=== PATIENT | female | born 1930 | race Caucasian/White ===

== ENCOUNTER → 2016-09-10 | Outpatient (CLI) | payer MEDICARE, OTHER | END | disposition home or self-care (01) | LOC: GMAL 16:46 | PROVIDERS: ATTEND Family Medicine | DX: C50.919 Malignant neoplasm of unspecified site of unspecified female breast (principal) ==

== ENCOUNTER → 2016-12-04 | Outpatient (CLI) | payer MEDICARE, OTHER | END | disposition home or self-care (01) | LOC: GMAL 11:30 | PROVIDERS: ATTEND Family Medicine | DX: R53.83 Other fatigue (principal) ==

== ENCOUNTER → 2017-01-24 | Outpatient (CLI) | payer MEDICARE, OTHER | END | disposition home or self-care (01) | LOC: GMAL 10:51 | PROVIDERS: ATTEND Family Medicine | DX: C50.919 Malignant neoplasm of unspecified site of unspecified female breast (principal) ==

== ENCOUNTER → 2017-05-07 | Outpatient (CLI) | payer MEDICARE, OTHER | END | disposition home or self-care (01) | LOC: MAMMO 13:16 | PROVIDERS: ATTEND Family Medicine | DX: Z12.31 Encounter for screening mammogram for malignant neoplasm of breast (principal) | CPT/HCPCS: 77063; G0202 ==

== ENCOUNTER → 2017-05-21 | Outpatient (CLI) | payer MEDICARE, OTHER ==
--- NOTE | 2017-05-21 16:19 | US ---
EXAM DESCRIPTION: Breast,Right: Ultrasound CLINICAL HISTORY: 87 yearsFemaleABNORMAL MAMMO COMPARISON: Digital 3-D tomosynthesis diagnostic right breast on this visit. TECHNIQUE: Transcutaneous scanning of the right breast utilizing two-dimensional and Doppler modes. Scanning performed by the personnel counselor and Dr. Amanda. FINDINGS: At the 1200 clock position of the right breast in the retroareolar tissues is a heterogeneous hypoechoic nodule with partially well-circumscribed and partially indistinct borders. Not significantly vascular. Parallel and nonparallel orientation. Dimensions are 10 x 8 x 7.4 mm. Mixed posterior acoustic features. IMPRESSION: BI-RADS CATEGORY 4: SUSPICIOUS. SUB-CATEGORY 4A - LOW SUSPICION FOR MALIGNANCY. Surgical consultation and tissue diagnosis should be considered. The FINDINGS and follow-up plan were reviewed in person with the patient following the examination. Written communication explaining the results and follow-up will be mailed to the patient and referring care provider. CRITICAL COMMUNICATION: The critical value was discussed directly by phone with Dr. Laith Morse at approximately 1545 hours, on May 21, 2017. Electronically signed by: Leonel Amanda MD 05/21/2017 4:18 PM [facility]
--- NOTE | 2017-05-21 16:19 | MAM ---
EXAM DESCRIPTION: 3D Diagnostic, Right: Digital Mammography CLINICAL HISTORY: 87 yearsFemaleABNORMAL MAMMO . Microcalcifications and dense fibroglandular tissues retroareolar right breast.. COMPARISON: 3-D screening bilateral study 05/07/2017. Targeted right breast ultrasound following this examination. Reports from prior examinations also reviewed. TECHNIQUE: Right breast LM projection full-field images, 3-D tomosynthesis digital mammographic technique. Also right breast synthesized LM full-field images. Digital 2-D anterior right breast magnification images CC and LM projections. CAD not utilized. FINDINGS: The breast parenchymal density pattern is: Heterogeneously dense breast tissue, which may obscure small masses. Minimal nipple retraction. No definite mass or focal asymmetry. Minimal architectural distortion. Heterogeneous and dystrophic calcifications. Multiple vascular calcifications. Ultrasound: At the 1200 clock position of the right breast in the retroareolar tissues is a heterogeneous hypoechoic nodule with partially well-circumscribed and partially indistinct borders. Not significantly vascular. Parallel and nonparallel orientation. Dimensions are 10 x 8 x 7.4 mm. Mixed posterior acoustic features IMPRESSION: BI-RADS CATEGORY 4: SUSPICIOUS. SUB-CATEGORY 4A - LOW SUSPICION FOR MALIGNANCY. Surgical consultation and tissue diagnosis should be considered. The FINDINGS and the follow-up plan were reviewed in person with the patient after the examination. Written communication explaining the IMPRESSION and follow-up will be mailed to the patient and referring care provider. CRITICAL COMMUNICATION: The critical value was discussed directly by phone with Dr. Laith Morse at approximately 1545 hours, on May 21, 2017. Electronically signed by: Leonel Amanda MD 05/21/2017 4:[address] [facility]
== END | disposition home or self-care (01) ==
LOC: MAMMO 16:06
PROVIDERS: ATTEND Family Medicine
DX: R92.8 Other abnormal and inconclusive findings on diagnostic imaging of breast (principal)
CPT/HCPCS: 76641; G0279

== ENCOUNTER → 2017-06-03 | Outpatient (CLI) | payer MEDICARE, OTHER ==
--- NOTE | 2017-06-03 10:22 | OP ---
DATE OF PROCEDURE: 06/03/17 PREOPERATIVE DIAGNOSIS: 1. Right breast mass per mammogram and ultrasound. POSTOPERATIVE DIAGNOSIS: 1. Right breast mass per mammogram and ultrasound. PROCEDURE: 1. Sonographically guided needle core biopsy, right breast mass. SURGEON: Chapin Emery MD. QM NURSE: None. ANESTHESIA: Local infiltration of 1% lidocaine. INDICATION: The patient is an 87-year-old female who on mammography was found to have a new mass in the 12 o'clock position of the right breast. It appears to be solid and somewhat circumscribed on ultrasound. She was brought to the Surgical Suite today for sonographically guided needle core biopsy after the risks, benefits and alternatives to the procedure were discussed and accepted. FINDINGS: The ultrasound device identified the biopsy needle within the mass on multiple occasions. Multiple cores were taken. Pathology is pending. PROCEDURE: After the patient was brought to the Ultrasound Suite and placed in the supine position with the head of the bed slightly elevated, the right breast was inspected using the ultrasound device and the lesion was identified. The breast medial to the ultrasound probe was prepped with Betadine and then draped. The probe was then again placed in position. Local infiltration of anesthesia was obtained with 1% lidocaine. A 25-gauge needle was introduced under ultrasound guidance and infiltration of anesthesia was obtained between the lesion and the skin. A stab wound was then made with a 15-blade. Then, as noted, multiple passes were made with the needle core biopsy device and sent for pathological evaluation. Hemostasis was obtained with pressure. A single suture of 4-0 Prolene was placed in the skin incision. Sterile pressure dressing was applied. The patient tolerated the procedure well. Estimated blood loss was approximately 5 to 10 mL. All sponge, needle and instrument counts were correct. #[id number] [facility]
--- NOTE | 2017-06-05 10:49 | US ---
EXAM DESCRIPTION: Biopsy/Needle Guidance CLINICAL HISTORY: 87 yearsFemaleRIGHT BREAST MASS COMPARISON: Diagnostic ultrasound of the right breast on 05/21/2017. TECHNIQUE: The procedure was performed by Dr. Emery. Repeat ultrasound localized the lesion at the 1200 clock position of the right breast. Sterile preparation. Sterile ultrasound guidance. FINDINGS: Multiple orthogonal images demonstrate the echogenic core biopsy needle within the lesion. Surrounding tissue is heterogeneous fatty and fibroglandular. IMPRESSION: Successful ultrasound-guided core biopsy needle right breast mass. Pathology examination at remote facility, results pending. Electronically signed by: Leonel Amanda MD 06/05/2017 10:48 AM [facility]
== END | disposition home or self-care (01) ==
LOC: US 09:37
PROVIDERS: ATTEND Surgery
PROC: 0HBT3ZX Excision of Right Breast, Percutaneous Approach, Diagnostic (ICD-10-PCS; principal; 2017-06-03)
DX: N63.41 Unspecified lump in right breast, subareolar (principal)

== ENCOUNTER → 2017-06-13 | Outpatient (CLI) | payer MEDICARE, OTHER ==
--- NOTE | 2017-06-13 14:48 | RAD ---
EXAM DESCRIPTION: Chest,2 Views CLINICAL HISTORY: BREAST CA COMPARISON: June 10, 2017 TECHNIQUE: PA/lateral FINDINGS: Cardiomediastinal silhouette and pulmonary vascularity are within normal limits. Lungs are adequately aerated. Lungs are clear without focal consolidative infiltrates. Bilateral costophrenic angles are sharp. No pneumothorax. Visualized osseous structures show no destructive lesions. IMPRESSION: 1. No radiographic evidence for acute cardiopulmonary process. Electronically signed by: Laith Lang MD 06/13/2017 2:46 PM [facility]
--- NOTE | 2017-06-13 14:59 | NM ---
EXAM DESCRIPTION: Bone Scan, Whole Body CLINICAL HISTORY: BREAST CA COMPARISON: None available TECHNIQUE: Following intravenous administration of 25 mCi technetium 99 M MDP, whole body spot scintigraphic imaging was performed. FINDINGS: Skull: Unremarkable. Spine: Mild degenerative uptake in the lumbar spine. No osteoblastic metastatic lesions. Thorax: Homogeneous physiologic radiotracer distribution in the ribs bilaterally. There is a round focus of mildly increased radiotracer uptake in the costochondral junction of a lower right rib. This nonspecific and has a benign appearance. The sternum demonstrates homogeneous physiologic uptake. Abdomen and pelvis: Physiologic urinary activity seen in the bilateral kidneys, left ureter, and urinary bladder. Extremities: Degenerative uptake in the bilateral shoulder joints. 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 There is mild increased uptake in the distal left femur and proximal left tibia around the left knee arthroplasty, likely reactive or gait changes. No osteoblastic metastatic lesions. Soft tissue: Normal distribution of radiopharmaceutical. IMPRESSION: 1. No scintigraphic evidence for osteoblastic metastatic disease. 2. A rounded focus of increased uptake in a lower right costochondral junction is nonspecific. Please correlate for history of trauma. Electronically signed by: Laith Lang MD 06/13/2017 2:58 PM [facility]
== END | disposition home or self-care (01) ==
LOC: NM 09:19
PROVIDERS: ATTEND Surgery
DX: C50.811 Malignant neoplasm of overlapping sites of right female breast (principal)

== ENCOUNTER → 2017-07-23 | Outpatient (CLI) | payer MEDICARE, OTHER | LOC: GMAL 11:29 | PROVIDERS: ATTEND Family Medicine | DX: D51.3 Other dietary vitamin B12 deficiency anemia (principal); E55.9 Vitamin D deficiency, unspecified; I10 Essential (primary) hypertension ==

== ENCOUNTER 2017-07-25 04:54 | Day surgery (SDC) | payer MEDICARE, OTHER ==
--- NOTE | 2017-07-22 12:51 | RAD ---
EXAM DESCRIPTION: Chest,2 Views CLINICAL HISTORY: 87 years Female, PREOP COMPARISON: 13 June 2017 TECHNIQUE: PA/lateral FINDINGS: The lungs are free of acute infiltrate or evidence of effusion. The heart is within range of normal. IMPRESSION: Unremarkable chest Electronically signed by: Laith Connor MD 07/22/2017 12:50 PM [employer]
[2017-07-25] MEDS ORDERED: LACTATED RINGERS 1,000 ML ONE (06:46)
[2017-07-25] MEDS ORDERED: PROPOFOL 200 MG/20 ML VIAL IV ONE (07:00)
[2017-07-25] MEDS ORDERED: SODIUM BICARBONATE VIAL 50 MEQ/50 ML VIAL ONE (09:16)
[2017-07-25] MEDS ORDERED: LIDOCAINE 1% 50 ML VIAL INJ ONE (09:16)
[2017-07-25] MEDS ORDERED: levoFLOXacin 500MG IV 100 ML IVPB ONE (09:23)
[2017-07-25] MEDS ORDERED: fentaNYL CITRATE INJ 50 MCG/ML AMP ONE (09:30)
[2017-07-25] MEDS ORDERED: levoFLOXacin 500MG IV 500 MG/100 ML BAG IVPB ONE (09:43)
[2017-07-25] MEDS ORDERED: ONDANSETRON INJ 4 MG/2 ML VIAL ONE (11:53)
[2017-07-25] MEDS ORDERED: METOCLOPRAMIDE HCL INJ 10 MG/2 ML VIAL ONE (11:53)
--- NOTE | 2017-07-25 11:58 | OP ---
DATE OF PROCEDURE: 07/25/17 PREOPERATIVE DIAGNOSIS: 1. Biopsy-proven carcinoma of the right breast. POSTOPERATIVE DIAGNOSIS: 1. Biopsy-proven carcinoma of the right breast. PROCEDURE: 1. Partial mastectomy to include the carcinoma after needle localization. SURGEON: Chapin Emery MD. MEMS ENGINEER: None. ANESTHESIA: General laryngeal mask and local infiltration of 1% lidocaine. INDICATION: The patient is an 87-year-old female who has previously been treated for a left breast carcinoma with lumpectomy and radiation. She declined hormone manipulation therapy and has developed an abnormal mammogram which needle core biopsy revealed as an infiltrating carcinoma. She was brought to the Surgical Suite today for wide excision with primary closure. The patient was brought to the Operating Room after the risks, benefits and alternatives to radiation therapy postoperatively, mastectomy and lymphadenectomy or sentinel node biopsy were all discussed. FINDINGS: The lesion was identified first with a guidewire and then palpation and the margins were marked, superior margin, inferior margin, lateral margin and deep margin. Pathology is pending. PROCEDURE: After adequate general anesthesia was obtained, the patient was prepped and draped in the usual sterile manner. A surgical time-out was taken. When this was done, surgical incision was marked with an elliptical incision medial to the areola to include both the guidewire insertion site and the previous biopsy site. The incision was then extended to the superior margin of the areola in the periareolar direction. Local infiltration of anesthesia was obtained and then the skin was incised with a knife. Dissection was carried down through the skin using electrocautery. Hemostasis was obtained with electrocautery. When this was done, the guidewire was dissected free to the medial aspect. The dissection was carried passed the end of the guidewire which was known to be superior to the lesion. It was then taken both superiorly and inferior around the lesion. The lesion was palpated and then the inferior margin and the medial margin were taken by palpation. The specimen was removed and marked with sutures as noted. The wound was irrigated with saline. Hemostasis was obtained with electrocautery. When hemostasis was noted to be adequate and the specimen had been sent for radiologic evaluation, the wound was closed in layers with deep layers approximated along with the chest wall in three bite sutures and then in two more layers of 3-0 and then 4- 0 Vicryl. The skin edges were approximated with 4-0 Vicryl subcuticular sutures , benzoin and Steri-Strips. Sterile pressure dressing was applied. The patient tolerated well. Estimated blood loss was less than 50 mL. All sponge, needle and instrument counts were correct. [facility][id number] [facility]
[2017-07-25] MEDS ORDERED: KETOROLAC TROMETHAMINE INJ 30 MG/ML VIAL ONE (12:23)
[2017-07-25] MEDS ORDERED: traMADol HCL 50 MG TAB ONE (13:13)
[2017-07-25 14:13] VITALS: BP 178/82; TEMP 98.1; O2SAT 96
--- NOTE | 2017-07-26 13:43 | US ---
EXAM DESCRIPTION: Biopsy/Needle Guidance: Ultrasound. CLINICAL HISTORY: 87 yearsFemaleMASS. Malignant cells on recent ultrasound-guided core biopsy. COMPARISON: Diagnostic ultrasound of the right breast on 05/21/2017. Ultrasound-guided core biopsy right breast 06/03/2017 TECHNIQUE: The procedure was explained to the patient with risks and benefits. The patient gave verbal and written consent. Repeat ultrasound localized the lesion at the 12:00 position of the right breast. Sterile preparation. Sterile ultrasound guidance. 1% lidocaine with sodium bicarbonate for skin and subdermal anesthesia at the 300 clock position 2 cm from the nipple. This is adjacent to the biopsy skin insertion site. Insertion of 5 cm Kopan needle wire system to the edge of the lesion. While wire was held in place, outer needle was removed. Additional scans of the wire and mass were performed. Patient tolerated the procedure well with no immediate complications. FINDINGS: Preliminary scans prior to the procedure show the hypoechoic mass approximately 6 x 6 mm at the 1200 clock position of the right breast. The mass has a slight difference in architecture since the prior core biopsy. Multiple images show the needle wire system abutting the mass. After needle was removed, the wire is noted just anterior to the mass with the hook just lateral to the mass. IMPRESSION: Successful, ultrasound-guided, localization of right breast mass with needle wire localization system. Please refer to report on post lumpectomy right breast ultrasound specimen examination. Pathology examination at remote facility, results pending. Electronically signed by: Leonel Amanda MD 07/26/2017 1:42 PM [facility] [employer]
--- NOTE | 2017-07-26 14:06 | MAM ---
EXAM DESCRIPTION: Breast Surgical Specimen: Ultrasound CLINICAL HISTORY: 87 yearsFemaleLUMPECTOMY COMPARISON: Ultrasound guided, needle wire localization of right breast mass today. TECHNIQUE: Ultrasound of right breast biopsy specimen. Specimen is placed between 2 sheets of x-ray film with ultrasound gel overlying the top sheet and overlying the specimen. FINDINGS: The right breast lumpectomy specimen contains the mass seen on today's procedure images and also seen on images from previous examinations. The distal wire and hook are seen anterior to the specimen. IMPRESSION: Successful, ultrasound guided, needle wire localization of mass in the anterior right breast, with mass, and distal wire and hook present in the lumpectomy specimen. The specimen is pending pathologic examination at remote laboratory Electronically signed by: Leonel Amanda MD 07/26/2017 2:05 PM [facility]
== END 2017-07-25 14:00 | disposition home or self-care (01) ==
LOC: AMB 04:54
PROVIDERS: ATTEND Surgery
DX: C50.911 Malignant neoplasm of unspecified site of right female breast (principal); K21.9 Gastro-esophageal reflux disease without esophagitis; Z86.718 Personal history of other venous thrombosis and embolism; E53.8 Deficiency of other specified B group vitamins; Z86.73 Personal history of transient ischemic attack (TIA), and cerebral infarction without residual deficits; M19.90 Unspecified osteoarthritis, unspecified site; K22.70 Barrett's esophagus without dysplasia; R00.1 Bradycardia, unspecified; Z88.0 Allergy status to penicillin; Z88.8 Allergy status to other drugs, medicaments and biological substances; Z79.899 Other long term (current) drug therapy
CPT/HCPCS: 00400; 19301; 36415; 71046; 76098; 80048; 81001; 85025; 88307; 93005; J1885; J1956; J2405; J2765; J3010; J3490; J7120

== ENCOUNTER → 2017-08-19 | Outpatient (CLI) | payer MEDICARE, OTHER | LOC: GMAL 11:14 | PROVIDERS: ATTEND Family Medicine | DX: C50.919 Malignant neoplasm of unspecified site of unspecified female breast (principal) ==

== ENCOUNTER → 2018-01-06 | Outpatient (CLI) | payer MEDICARE, OTHER ==
--- NOTE | 2018-01-06 16:31 | MRI ---
EXAM DESCRIPTION: Cervical Spine: MRI. CLINICAL HISTORY: CERVICALGIA COMPARISON: None. TECHNIQUE: Multiplanar MRI, multiple sequences, non-contrast High-field. FINDINGS: C2-3: Tiny posterior disc bulge with minimal disc desiccation. Minimal disc space loss. Minimal arthrosis right facet. Canal and neural foramina are patent. C3-4: Disc desiccation. Tiny posterior bulge. Trace anterolisthesis. Small uncinate spurs bilaterally. Posterior ligament hypertrophy. Bilateral facet arthrosis. Mild to moderate neural foraminal narrowing. Canal is patent. C4-5: Minimal disc desiccation and disc space loss. Trace anterolisthesis. Posterior disc osteophyte bulge abutting the cord. Mild canal narrowing. Bilateral foramina are patent. Bilateral facet arthrosis. C5-6: Disc desiccation and minimal disc space loss. Anterior bulging. Posterior disc osteophyte bulge abutting the cord with mild canal narrowing. Minimal posterior ligament hypertrophy. Left uncinate spur with mild neural foraminal narrowing. Right neuroforamen is patent. Bilateral facet arthrosis. C6-7: Disc desiccation and moderate disc space loss. Minimal anterior and posterior bulge. Left uncinate spur with minimal neural foraminal narrowing. Right neuroforamen is patent. Mild canal narrowing. Bilateral facets are unremarkable. C7-T1: Disc desiccation and disc space maintained. No bulging. Minimal flavum ligament hypertrophy. Canal and foramina are patent. Facets are negative. Normal signal in the T1-2 disc with no bulging. Disc space preserved. Canal and neural foramina are patent. Facets negative. Spinal alignment mid cervical kyphosis with no scoliosis.. No cord compression or cord edema. Atlantoaxial joint is negative. Base of the cerebellar tonsils is above the foramen magnum. Paravertebral soft tissues show thyroid gland with multiple nodules, heterogeneous, and enlarged. Vertebral bodies are not compressed at any level. Normal marrow signal in the remaining vertebral bodies and the posterior elements. IMPRESSION: 1. Multiple levels of cervical disc and endplate spondylosis most prominent at C4-5, C5-6, and C6-7. No canal or neural foraminal stenosis. No cord compression or herniated discs. 2. Multiple levels of unilateral or bilateral facet arthrosis. No cord compression or cord edema. 3. Heterogeneously enlarged thyroid gland with multiple bilateral nodules. In reference to [employer] Best Practice recommendations for imaging follow-up of idiopathic thyroid nodules, following 2017 ACR guidelines. Recommend follow-up thyroid ultrasound. Please see below.* * 1.Further evaluation by thyroid US recommended for: -Solitary ITN with high risk imaging features (locally invasive nodule or suspicious lymph nodes) -Solitary ITN of any size in pediatric pts. <= 18 years of age -Solitary ITN >= 1 cm in axial plane in pts. between 18 and 35 years of age -Solitary ITN >= 1.5 cm in axial plane in pts >= 35 years of age -Heterogeneous enlarged thyroid gland 2.No f/u imaging is recommended for ITNs not meeting the above criteria. 3.For multiple thyroid nodules, the above recommendations for solitary ITN are to be applied to the largest nodule. 4.No US or f/u recommended for ITNs without high risk features in pts. with limited life expectancy or significant co-morbidities, unless clinically warranted. Recommendations for f/u of Incidental Thyroid Nodules (ITN) found on CT, MR, NM and Extrathyroidal US are based upon the ACR white paper and Mendoza 3-tiered system for managing ITNs: J Am Cecilia [employer]. 2015 Aug;12(2): 143-50 Electronically signed by: Leonel Amanda MD 01/06/2018 4:30 PM CDT
== END ==
LOC: MRI 09:49
PROVIDERS: ATTEND Family Medicine
DX: M54.2 Cervicalgia (principal); E04.9 Nontoxic goiter, unspecified

== ENCOUNTER → 2018-01-17 | Outpatient (CLI) | payer MEDICARE, OTHER ==
--- NOTE | 2018-01-17 16:39 | US ---
THYROID ULTRASOUND CLINICAL INFORMATION: Thyrotoxicosis with toxic multinodular goiter. TECHNIQUE: Routine transcutaneous scannin-D and Doppler modes. COMPARISON: None. FINDINGS: Thyroid size: Right 3.8 x 2.2 x 1.8. Left 4.8 x 2.3 x 2.3. Isthmus 4.5 mm thickness. Texture: Heterogeneous Estimated total number of nodules >/=1 cm: 3 Number of spongiform nodules >/=2 cm not described below (TR1): 0 Number of mixed cystic and solid nodules >/=1.5 cm not described below (TR2): 0 Nodule #: 1 Maximum size: 1.6 cm; All dimensions 1.5 x 1.2 cm Location: right; lower Composition: solid/almost completely solid (2) Echogenicity: hypoechoic (2) Shape: not [id number] (0) Margins: ill-defined (0) Echogenic foci: none (0) ACR TI-RADS total points: 4. ACR TI-RADS risk category: TR4 (4-6 points) ACR TI-RADS recommendation: Ultrasound-guided fine needle aspiration Nodule #: 2 Maximum size: 1.9 cm; All dimensions 1.5 x 0.9 cm Location: left; mid Composition: solid/almost completely solid (2) Echogenicity: hyperechoic (1) Shape: not weubxz-[id number] (0) Margins: smooth (0) Echogenic foci: none (0) ACR TI-RADS total points: 3. ACR TI-RADS risk category: TR3 (3 points) ACR TI-RADS recommendation: Follow-up ultrasound in 1 year Nodule #: 3 Maximum size: 1 cm; All dimensions 0.7 x 0.7 cm Location: left; mid Composition: solid/almost completely solid (2) Echogenicity: hyperechoic (1) Shape: not aewplv-voti-fjxy (0) Margins: smooth (0) Echogenic foci: none (0) ACR TI-RADS total points: 3. ACR TI-RADS risk category: TR3 (3 points) ACR TI-RADS recommendation: No further follow-up Nodule #: 4 Maximum size: 0.6 cm; All dimensions 0.5 x 0.3 cm Location: isthmus; mid Composition: solid/almost completely solid (2) Echogenicity: hypoechoic (2) Shape: not cosdrk-alco-tcxa (0) Margins: smooth (0) Echogenic foci: none (0) ACR TI-RADS total points: 4. ACR TI-RADS risk category: TR4 (4-6 points) ACR TI-RADS recommendation: No further follow-up In the soft tissue surrounding the thyroid gland, no distinct solid mass or cyst. No large calcifications or parenchymal edema. No overlying skin changes. No abnormal vascularity. IMPRESSION: 1. 1.6 cm hypoechoic solid nodule (# 1) with somewhat irregular borders in the lower aspect of the right lobe. ACR TI RADS risk category TR 4. Ultrasound-guided fine-needle aspiration and sampling is recommended. Please see ACR TI RADS recommendations below.* 2. 1.9 cm solid hypoechoic nodule (# 2) in the mid left lobe. ACR TI-RADS risk category TR 3. Ultrasound follow-up in one year is recommended. If there are no changes to the nodule, additional follow-up recommended in year 3, and year 5. 3. Solid nodules in the left lobe and isthmus (# 3 and # 4), do not require further ultrasound follow-up 4. Soft tissue surrounding the thyroid gland are unremarkable. *ACR TI-RADS recommendations: TR5 (>/=7 points) - FNA if >/=1 cm, follow-up if 0.5 - 0.9 cm every year for 5 years TR4 (4-6 points) - FNA if >/=1.5 cm, follow-up if 1 - 1.4 cm in 1, 2, 3 and 5 years TR3 (3 points) - FNA if >/=2.5 cm, follow -up if 1.5 - 2.4 cm in 1, 3 and 5 years TR2 (2 points) and TR1 (0 points) - No FNA or follow-up * ACR TI-RADS recommends that no more than two nodules with the highest ACR TI-RADS total point should be biopsied and no more than four nodules should be followed. Electronically signed by: Leonel Amanda MD 01/17/2018 4:38 PM CDT
== END ==
LOC: US 10:29
PROVIDERS: ATTEND Family Medicine
DX: E05.20 Thyrotoxicosis with toxic multinodular goiter without thyrotoxic crisis or storm (principal)

== ENCOUNTER → 2018-01-22 | Outpatient (CLI) | payer MEDICARE, OTHER ==
--- NOTE | 2018-01-23 12:28 | MAM ---
EXAM DESCRIPTION: 3D Diagnostic, Right: Digital Mammography CLINICAL HISTORY: 88 yearsFemaleSCREENING . Bilateral breast cancer with lumpectomies. Benign right breast biopsy July 2017. Malignant right breast biopsy May 2017. Postmenopausal. Has taken HRT in the past. Malignant left breast biopsy 2013. Previous radiation therapy left breast. COMPARISON: Diagnostic right breast digital mammography 05/21/2017. Ultrasound-guided needle biopsy right breast 07/25/2017. Ultrasound-guided needle biopsy right breast 06/03/2017. 3-D screening bilateral mammography 05/07/2017. Reports from prior examinations also reviewed. TECHNIQUE: Right CC LM MLO projection full-field images, 3-D tomosynthesis digital mammographic technique. CAD not utilized. FINDINGS: Right breast parenchymal density pattern is: Heterogeneously dense breast tissue, which may obscure small masses. No skin thickening or nipple retraction the breast parenchyma is more radiolucent in the biopsy area compared to the prebiopsy diagnostic mammographic images. Some parenchymal and vascular calcifications are also no longer present in the region of biopsy. No new focal, stellate mass or density, focal asymmetry , and no suspicious microcalcifications right breast postbiopsy region of interest. IMPRESSION: BI-RADS CATEGORY: 2 - BENIGN FINDINGS. FOLLOW UP: Routine digital bilateral screening, April 2018. Written communication explaining the IMPRESSION and follow-up, will be mailed to the patient and referring health care provider. According to the [employer], yearly mammograms are recommended starting at age 40 and continuing as long as a woman is in good health. Any breast change noted on a breast self-exam should be reported promptly to the patient's healthcare provider. Breast MRI is recommended for women with an approximately 20-25% or greater lifetime risk of breast cancer, including women with a strong family history of breast or ovarian cancer and women who have been treated for Hodgkin's disease. A negative mammographic report should not delay tissue diagnosis in patients with significant clinical history or physical findings. Extremely dense breast tissue limits the sensitivity of digital mammography. Electronically signed by: Leonel Amanda MD 01/23/2018 12:27 PM CDT
== END ==
LOC: MAMMO 13:12
PROVIDERS: ATTEND Surgery
DX: C50.811 Malignant neoplasm of overlapping sites of right female breast (principal)
CPT/HCPCS: 77065; G0279

== ENCOUNTER → 2018-02-04 | Outpatient (CLI) | payer MEDICARE, OTHER ==
--- NOTE | 2018-02-04 12:47 | US ---
Thyroid Ultrasound Biopsy CLINICAL INFORMATION: 1.6 cm nodule seen in the right lower thyroid on prior study 01/17/2018. TECHNIQUE: Procedure was explained to the patient with risks and benefits. The patient gave verbal and written consent. Sterile preparation draping. 1% xylocaine dermal anesthetic 9-1 mixture with sodium bicarbonate. Sterile ultrasound guidance. A total of 6 passes into the right lower thyroid nodule; 3 needle samplings with a separate 1.5 inch, 25-gauge needle per sample, and 3 aspirations, with a separate 1.5 inch, 25-gauge needle/10-cc syringe set, per aspiration. Each sample was placed on a separate slide and fixed in 95% alcohol container. Saccomanno fluid drawn into aspirate needle and rinse injected into Saccomanno container. Specimens to be sent for pathologic examination at remote facility. . Patient tolerated procedure well. Biopsy #: 1 Nodule reference number based on prior diagnostic ultrasound:1 Maximum size: 1.6 cm Location: right; lower ACR TI-RADS risk category: TR4 (4-6 points) Reason for biopsy: meets ACR TI-RADS criteria Complications: None IMPRESSION: Successful ultrasound guided fine needle aspiration and sampling of thyroid nodule, right lower gland. ACR TI-RADS risk category TR 4. Pathology results are pending at remote laboratory. As previously stated, nodule in the left mid thyroid should be followed by ultrasound in 1 year. Electronically signed by: Leonel Amanda MD 02/04/2018 12:46 PM CDT
== END ==
LOC: US 08:47
PROVIDERS: ATTEND Family Medicine
DX: E05.20 Thyrotoxicosis with toxic multinodular goiter without thyrotoxic crisis or storm (principal)

== ENCOUNTER → 2018-02-06 | Outpatient (CLI) | payer MEDICARE, OTHER | LOC: GMAL 11:03 | PROVIDERS: ATTEND Family Medicine | DX: R53.83 Other fatigue (principal) ==

== ENCOUNTER → 2018-03-13 | Outpatient (CLI) | payer MEDICARE, OTHER | LOC: GMAL 16:45 | PROVIDERS: ATTEND Family Medicine | DX: E05.20 Thyrotoxicosis with toxic multinodular goiter without thyrotoxic crisis or storm (principal) ==

== ENCOUNTER → 2018-04-02 | Outpatient (CLI) | payer MEDICARE, OTHER ==
--- NOTE | 2018-04-02 15:12 | MRI ---
EXAM DESCRIPTION: Lumbar Spine w/o Contrast : Magnetic Resonance Imaging. CLINICAL HISTORY: LOW BACK PAIN COMPARISON: MRI lumbar spine without contrast 01/16/2011. TECHNIQUE: Multiplanar, multiple standard sequences, non contrast MRI, lumbar spine. FINDINGS: L5-S1: Disc desiccation with minimal disc space loss. No significant bulging. Minimal facet arthrosis and flavum ligament hypertrophy. Moderate right foraminal narrowing and mild left foraminal narrowing. L4-5: Disc desiccation with disc space preserved. Tiny posterior bulge with bright T2-weighted signal in the posterior margin. Mild right facet arthrosis. Disc bulges to the right with mild right foraminal narrowing. Mild left foraminal narrowing and mild canal narrowing. L3-4: Disc desiccation and minimal disc space loss. Posterior bulge is broad-based abutting the thecal sac. Bilateral facet arthrosis and effusion and flavum ligament hypertrophy. Mild canal stenosis. Mild bilateral foraminal narrowing. Minimal narrowing of the bilateral subarticular recesses. L2-3: Disc desiccation with disc space preserved. Minimal flavum ligament hypertrophy. Mild bilateral foraminal narrowing. Canal is patent. L1-2: Disc desiccation with Schmorl's node inferior L1 endplate. Disc space preserved. Posterior flavum ligament hypertrophy. Minimal right facet arthrosis. Mild canal narrowing. Bilateral mild foraminal narrowing. T12-L1: Disc space preserved with endplate concavities. Disc desiccation. No disc bulge. Posterior elements unremarkable. Canal and foramina are patent. No significant scoliosis Paravertebral soft tissues show paraspinal muscle atrophy.. Normal marrow signal in the remaining vertebral bodies and the posterior elements. Vertebral bodies are not compressed at any level. IMPRESSION: 1. Bulging L3-4 disc and hypertrophy of the flavum ligaments and facet arthrosis causing mild canal stenosis. Mild bilateral foraminal narrowing. Bilateral subarticular recess narrowing. 2. Posterior midline L4-5 disc bulge with annular fissure. 3. L5-S1 disc desiccation with right side disc bulge and moderate right foraminal narrowing. Electronically signed by: Leonel Amanda MD 04/02/2018 3:10 PM CDT
== END ==
LOC: MRI 14:00
PROVIDERS: ATTEND Family Medicine
DX: M51.26 Other intervertebral disc displacement, lumbar region (principal)

== ENCOUNTER → 2018-05-20 | Outpatient (CLI) | payer MEDICARE, OTHER ==
--- NOTE | 2018-05-22 10:39 | MAM ---
EXAM DESCRIPTION: 3D Screening BILATERAL : Digital Mammography. CLINICAL HISTORY: 88 years Female SCREENING . Cancer right breast diagnosed May 2017 ultrasound-guided biopsy. Follow-up open biopsy July 2017. Previous left breast cancer. Half - sister with breast cancer. Childbirth. Postmenopausal. Has taken HRT. Bilateral breast biopsies. Radiation therapy left breast.. Lifetime risk of developing breast cancer (Tyrer-Cuzick model)(%): Not calculated due to personal history of breast cancer. COMPARISON: Diagnostic right breast tomosynthesis, targeted right breast ultrasound and mammographic guided needle wire localization July 2017. Diagnostic right breast tomosynthesis, ultrasound targeted right breast and ultrasound-guided right breast core biopsy May 2017.. Bilateral screening digital breast tomosynthesis April 2017. TECHNIQUE: Bilateral CC and MLO projection full-field images, digital tomosynthesis mammographic technique. Bilateral digital 2-D full-field MLO images. CAD not available for tomosynthesis or 2-D images. FINDINGS: The breast parenchymal density pattern is: Heterogeneously dense breast tissue, which may obscure small masses. Minimal bilateral skin thickening abutting the nipple. No Nipple retraction. The lumpectomy site noted retroareolar right breast. Bilateral vascular calcifications and bilateral solitary coarse calcifications and microcalcifications.. Superior posterior left breast biopsy site 1:00 position with central calcifications and architectural distortion. No new focal, stellate mass or density, focal asymmetry , and no suspicious microcalcifications bilaterally. IMPRESSION: Benign exam. BIRAD CATEGORY: 2 BENIGN FINDINGS. RECOMMENDATIONS: FOLLOW UP: Routine digital bilateral mammographic screening, one year interval from May 2018. Written communication explaining the IMPRESSION and follow-up, will be mailed to the patient and referring health care provider. According to the [employer], yearly mammograms are recommended starting at age 40 and continuing as long as a woman is in good health. Any breast change noted on a breast self-exam should be reported promptly to the patient's healthcare provider. Breast MRI is recommended for women with an approximately 20-25% or greater lifetime risk of breast cancer, including women with a strong family history of breast or ovarian cancer and women who have been treated for Hodgkin's disease. A negative mammographic report should not delay tissue diagnosis in patients with significant clinical history or physical findings. Extremely dense breast tissue limits the sensitivity of digital mammography. Electronically signed by: Leonel Amanda MD 05/22/2018 10:38 AM RESTAURANT MAINTENANCE TECHNICIAN
== END ==
LOC: MAMMO 10:30
PROVIDERS: ATTEND Family Medicine
DX: Z12.31 Encounter for screening mammogram for malignant neoplasm of breast (principal)

== ENCOUNTER → 2018-10-30 | Outpatient (CLI) | payer MEDICARE, OTHER ==
--- NOTE | 2018-10-31 07:43 | RAD ---
EXAM DESCRIPTION: Pelvis CLINICAL HISTORY: M25.551 pelvic pain COMPARISON: September 01, 2015 IMPRESSION: Single AP supine view of the pelvis shows noncemented left total hip arthroplasty in place. No complicating features are seen. Severe narrowing of the right hip joint space is seen with sclerotic changes to the superior lateral acetabulum and mild circumferential osteophyte of the femoral head most consistent with severe osteoarthritic changes of the right hip similar to previous exam. Electronically signed by: Butch Monroy MD 10/31/2018 7:40 AM CDT
--- NOTE | 2018-10-31 07:45 | RAD ---
EXAM DESCRIPTION: Hip,Right 2 Views CLINICAL HISTORY: M25.551 hip pain COMPARISON: September 01, 2015 FINDINGS: 2 views of the right hip show no acute fracture, focal bone destruction, or joint dislocation. Severe joint space narrowing is again seen with mild circumferential osteophyte of the femoral head and moderate sclerotic changes to the superior lateral acetabulum. Left hip arthroplasty changes are partly visualized. IMPRESSION: Severe osteoarthritic changes of the right hip are again seen without significant interval change. Electronically signed by: Butch Monroy MD 10/31/2018 7:42 AM CDT
== END ==
LOC: RAD 10:30
PROVIDERS: ATTEND Orthopaedic Surgery
DX: M16.11 Unilateral primary osteoarthritis, right hip (principal); Z96.641 Presence of right artificial hip joint

== ENCOUNTER → 2019-01-21 | Outpatient (CLI) | payer MEDICARE, OTHER ==
--- NOTE | 2019-01-22 19:58 | MAM ---
EXAM DESCRIPTION: Diagnostic Mammo,Right: Digital Mammography CLINICAL HISTORY: 89 yearsFemaleFU BREAST RIGHT personal history of bilateral breast cancer with lumpectomy. Sister With breast cancer. Taking HRT 5 or more years ago. Postmenopausal 45+ years Lifetime risk of developing breast cancer (Tyrer-Cuzick model) percentage is not calculated due to personal history of breast cancer. COMPARISON: Bilateral screening digital breast tomosynthesis 05/20/2018... TECHNIQUE: Right LM, MLO, and CC projection full-field images, digital mammographic tomosynthesis technique. CAD not available. FINDINGS: The breast parenchymal density pattern is: Heterogeneously dense breast tissue, which may obscure small masses. No skin thickening or nipple retraction right breast. Scarring in the upper outer quadrant of the middle third of the right breast previous lumpectomy site. No significant change, taking into account technical tissue changes post biopsy. Solitary microcalcifications and vascular microcalcifications. No new focal, stellate mass or density, focal asymmetry , and no suspicious microcalcifications right breast. Stable mammograms compared to prior study, IMPRESSION: Benign exam. BIRAD CATEGORY: 2 BENIGN FINDINGS. RECOMMENDATIONS: FOLLOW UP: Return to routine digital bilateral mammographic screening, May 2019. Written communication explaining the IMPRESSION and follow-up, will be mailed to the patient and referring health care provider. The FINDINGS and the FOLLOW-UP plan were reviewed, by the wholesale buyer, with the patient after the examination. According to the [employer], yearly mammograms are recommended starting at age 40 and continuing as long as a woman is in good health. Any breast change noted on a breast self-exam should be reported promptly to the patient's healthcare provider. Breast MRI is recommended for women with an approximately 20-25% or greater lifetime risk of breast cancer, including women with a strong family history of breast or ovarian cancer and women who have been treated for Hodgkin's disease. A negative mammographic report should not delay tissue diagnosis in patients with significant clinical history or physical findings. Extremely dense breast tissue limits the sensitivity of digital mammography. Electronically signed by: Leonel Amanda MD 01/22/2019 7:56 PM CDT
== END ==
LOC: MAMMO 09:00
PROVIDERS: ATTEND Surgery
DX: C50.811 Malignant neoplasm of overlapping sites of right female breast (principal)
CPT/HCPCS: 77065; G0279

== ENCOUNTER → 2019-02-11 | Outpatient (CLI) | payer MEDICARE, OTHER | LOC: GMAL 11:26 | PROVIDERS: ATTEND Family Medicine | DX: C50.919 Malignant neoplasm of unspecified site of unspecified female breast (principal) ==

== ENCOUNTER 2019-04-12 19:55 | Emergency (ER) | payer MEDICARE, OTHER ==
[2019-04-12] MEDS ORDERED: methylPREDNISolone SODIUM SUC 125 MG/2 ML VIAL IV ONE (20:22)
[2019-04-12] MEDS ORDERED: diphenhydrAMINE HCL 50 MG/ML VIAL IV ONE (20:23)
[2019-04-12] MEDS ORDERED: FAMOTIDINE IV PREMIX 20 MG in PREMIX BAG 1 BAG IVPB ONE (20:23)
[2019-04-12 20:26] VITALS: TEMP 99.2
[2019-04-12] MEDS ORDERED: FAMOTIDINE IV PREMIX 50 ML IVPB ONE (20:26)
--- NOTE | 2019-04-12 20:36 | ED.PDOC ---
History of Present Illness - General Chief Complaint: ENT Problem Stated Complaint: sore throat, tongue swelling Time Seen by Provider: 04/12/19 20:05 - History of Present Illness Initial Comments: c//o of swelling in the tongue and sore throat started this morning which has got much better and almost gone. Pt recently started Lisinopril 10 mg qd Timing/Duration: abrupt, this morning Worsening Factors: medication Associated Symptoms: sore throat Allergies/Adverse Reactions: Allergies Codeine Allergy (Unknown, Verified 04/28/16 10:19) Nausea Morphine Allergy (Unknown, Verified 04/12/19 20:22) Nausea Penicillin G Allergy (Unknown, Verified 04/12/19 20:22) Rash Zoledronic Acid [From Reclast] Allergy (Unknown, Verified 04/28/16 10:19) Other Home Medications: Ambulatory Orders Amlodipine Besylate [Norvasc] 2.5 mg PO DAILY 04/14/14 Atorvastatin Calcium [Lipitor] 40 mg PO DAILY 04/14/14 DiphenhydrAMINE HCL [Benadryl] 25 mg PO Q6HR 3 Days #12 cap 04/12/19 EPINEPHrine AUTO-INJ [EpiPen] 0.3 mg IM ONCE #1 pen 04/12/19 Prednisone 50 mg PO DAILY 2 Days #2 tab 04/12/19 Ranitidine HCl 150 mg PO BID #10 tab 04/12/19 Review of Systems - Review of Systems Constitutional: States: no symptoms reported EENTM: States: see HPI Respiratory: States: no symptoms reported Cardiology: States: no symptoms reported Gastrointestinal/Abdominal: States: no symptoms reported Genitourinary: States: no symptoms reported Musculoskeletal: States: no symptoms reported Skin: States: no symptoms reported Neurological: States: no symptoms reported Endocrine: States: no symptoms reported Hematologic/Lymphatic: States: no symptoms reported Past Medical History (General) - Patient Medical History Hx Seizures: No Hx Stroke: Yes Hx Dementia: No Hx Asthma: No Hx of COPD: No Hx Cardiac Disorders: No Hx Congestive Heart Failure: No Hx Pacemaker: No Hx Hypertension: Yes Hx Thyroid Disease: No Hx Diabetes: No Hx Gastroesophageal Reflux: Yes Hx Renal Disease: No Hx Cancer: Yes - breast Hx of HIV: No Hx Hepatitis C: No Hx MRSA: No Surgical History: appendectomy, cholecystectomy, tonsillectomy - Vaccination History Hx Tetanus, Diphtheria Vaccination: No Hx Influenza Vaccination: Yes Hx Pneumococcal Vaccination: Yes - Social History Hx Tobacco Use: No Family Medical History - Family History Father Living Status: Cause of : emphysema Physical Exam - Physical Exam General Appearance: Alert, Comfortable, Well Developed, Well Groomed, Well Hydrated, Well Nourished Eye Exam: bilateral normal Ear Exam: bilateral ear: auricle normal Nasal Exam: normal inspection Throat Exam: normal mouth inspection, pharynx normal Neck: non-tender, full range of motion, supple, normal inspection Cardiovascular/Respiratory: regular rate, rhythm, no M/R/G, normal peripheral pulses, normal breath sounds Abdominal Exam: non-tender Neurologic: no motor/sensory deficits, alert, normal mood/affect, oriented x 3 Skin Exam: normal color, warm/dry Departure - Departure Clinical Impression: Allergic reaction caused by a drug, Tongue swelling Disposition: Discharge to Home or Self Care Departure Forms: ED Discharge - Pt. Copy, Patient Portal Self Enrollment Instructions: DI for Ear Pain-Adult Diet: resume usual diet Activity: increase activity as tolerated, walking as tolerated Referrals: Laith Morse III, MD [Primary Care Provider] - 1-2 Weeks Prescriptions: DiphenhydrAMINE HCL [Benadryl] 25 mg PO Q6HR 3 Days #12 cap EPINEPHrine AUTO-INJ [EpiPen] 0.3 mg IM ONCE #1 pen Ranitidine HCl 150 mg PO BID #10 tab Home Medications: Ambulatory Orders Amlodipine Besylate [Norvasc] 2.5 mg PO DAILY 04/14/14 Atorvastatin Calcium [Lipitor] 40 mg PO DAILY 04/14/14 DiphenhydrAMINE HCL [Benadryl] 25 mg PO Q6HR 3 Days #12 cap 04/12/19 EPINEPHrine AUTO-INJ [EpiPen] 0.3 mg IM ONCE #1 pen 04/12/19 Prednisone 50 mg PO DAILY 2 Days #2 tab 04/12/19 Ranitidine HCl 150 mg PO BID #10 tab 04/12/19
[2019-04-12] MEDS ORDERED: diphenhydrAMINE HCL 50 MG/ML VIAL IM ONE (21:07)
[2019-04-12] MEDS ORDERED: methylPREDNISolone SODIUM SUC 125 MG/2 ML VIAL IM ONE (21:07)
[2019-04-12] MEDS ORDERED: FAMOTIDINE 20 MG TAB ONE (21:12)
[2019-04-12 21:38] VITALS: BP 146/63; O2SAT 99
[2019-04-13] MEDS ORDERED: FAMOTIDINE 20 MG TAB PO ONE (21:09)
== END 2019-04-12 21:37 | disposition home or self-care (01) ==
LOC: ER 19:55
DX: R22.0 Localized swelling, mass and lump, head (principal); J02.9 Acute pharyngitis, unspecified; T46.4X5A Adverse effect of angiotensin-converting-enzyme inhibitors, initial encounter; I10 Essential (primary) hypertension; K21.9 Gastro-esophageal reflux disease without esophagitis; Z85.3 Personal history of malignant neoplasm of breast; Z86.73 Personal history of transient ischemic attack (TIA), and cerebral infarction without residual deficits; Z79.899 Other long term (current) drug therapy; Z88.5 Allergy status to narcotic agent; Z88.0 Allergy status to penicillin; Z88.8 Allergy status to other drugs, medicaments and biological substances
CPT/HCPCS: J1200; J2930

== ENCOUNTER → 2019-05-21 | Outpatient (CLI) | payer MEDICARE, OTHER ==
--- NOTE | 2019-05-25 15:22 | MAM ---
EXAM DESCRIPTION: 3D Screening BILATERAL : Digital Mammography. CLINICAL HISTORY: 89 years Female ANNUAL SCREENING personal history of bilateral breast cancer. Bilateral breast lumpectomies and treatment. Lifetime risk of developing breast cancer (Tyrer-Cuzick model)(%): Not calculated due to personal history of breast cancer. COMPARISON: Diagnostic right breast mammography 21 January 2019. Bilateral screening digital breast tomosynthesis 20 May 2018.. TECHNIQUE: Bilateral CC and MLO projection full-field images, digital tomosynthesis mammographic technique. Bilateral digital 2-D full-field MLO images. and CC images. CAD not available for tomosynthesis or 2-D images. FINDINGS: The breast parenchymal density pattern is: Heterogeneously dense breast tissue, which may obscure small masses. Bilateral architectural distortion associated with lumpectomy site and treatment. Bilateral vascular calcifications. Bilateral solitary microcalcifications and coarse calcifications. Posterior inferior right breast skin moles. Heterogeneous calcifications associated with the lumpectomy sites. Slightly more fibroglandular density upper-outer quadrant right breast and left breast but this asymmetry is stable. No new focal, stellate mass or density, focal asymmetry , and no suspicious microcalcifications bilaterally. Stable mammograms compared to prior study. IMPRESSION: Benign exam. BIRAD CATEGORY: 2 BENIGN FINDINGS. RECOMMENDATIONS: FOLLOW UP: Routine digital bilateral mammographic screening, one year interval from May 2019. Written communication explaining the IMPRESSION and follow-up, will be mailed to the patient and referring health care provider. According to the [employer], yearly mammograms are recommended starting at age 40 and continuing as long as a woman is in good health. Any breast change noted on a breast self-exam should be reported promptly to the patient's healthcare provider. Breast MRI is recommended for women with an approximately 20-25% or greater lifetime risk of breast cancer, including women with a strong family history of breast or ovarian cancer and women who have been treated for Hodgkin's disease. A negative mammographic report should not delay tissue diagnosis in patients with significant clinical history or physical findings. Extremely dense breast tissue limits the sensitivity of digital mammography. Electronically signed by: Leonel Amanda MD 05/25/2019 3:21 PM COMPLEX CASE MANAGER
== END ==
LOC: MAMMO 09:22
PROVIDERS: ATTEND Family Medicine
DX: Z12.31 Encounter for screening mammogram for malignant neoplasm of breast (principal)

== ENCOUNTER → 2019-06-09 | Outpatient (CLI) | payer MEDICARE, OTHER | LOC: GMAL 10:21 | PROVIDERS: ATTEND Family Medicine | DX: C50.919 Malignant neoplasm of unspecified site of unspecified female breast (principal) ==

== ENCOUNTER → 2019-12-17 | Outpatient (CLI) | payer MEDICARE, OTHER | LOC: GMAL 16:41 | PROVIDERS: ATTEND Family Medicine | DX: E53.8 Deficiency of other specified B group vitamins (principal); R53.83 Other fatigue; E55.9 Vitamin D deficiency, unspecified; I10 Essential (primary) hypertension; E78.5 Hyperlipidemia, unspecified ==

== ENCOUNTER → 2019-12-21 | Outpatient (CLI) | payer MEDICARE, OTHER | LOC: EDSTATUS 08:30 → GMAL 11:33 | PROVIDERS: ATTEND Family Medicine | DX: E53.9 Vitamin B deficiency, unspecified (principal); R53.83 Other fatigue; E55.9 Vitamin D deficiency, unspecified ==

== ENCOUNTER → 2020-05-11 | Outpatient (CLI) | payer MEDICARE, OTHER | LOC: GMAL 14:41 | PROVIDERS: ATTEND Family Medicine | DX: C50.919 Malignant neoplasm of unspecified site of unspecified female breast (principal) ==

== ENCOUNTER → 2020-05-27 | Outpatient (CLI) | payer MEDICARE, OTHER ==
--- NOTE | 2020-05-30 16:05 | MAM ---
EXAM DESCRIPTION: 3D Screening BILATERAL : Digital Mammography. CLINICAL HISTORY: 89 years Female SCREENING . Personal history of breast cancer. Bilateral lumpectomies and treatment.. Lifetime risk of developing breast cancer (Tyrer-Cuzick model)(%): Not calculated due to personal history of breast cancer. COMPARISON: Bilateral screening digital breast tomosynthesis May 2019 and May 2018. TECHNIQUE: Bilateral CC and MLO projection full-field images, digital tomosynthesis mammographic technique. Bilateral digital 2-D full-field MLO images. CAD available for 2-D images. FINDINGS: The breast parenchymal density pattern is: Heterogeneously dense breast tissue, which may obscure small masses. No skin thickening or nipple retraction. Vascular calcifications. Solitary microcalcifications. Group of coarse microcalcifications associated with lumpectomy site posterior upper right breast enlarging. Architectural distortion at the same location. No interval change. Minimal architectural distortion upper outer quadrant middle third right breast stable. No new focal, stellate mass or density, focal asymmetry , and no suspicious microcalcifications bilaterally. Stable mammograms compared to prior study. IMPRESSION: Benign exam. BIRAD CATEGORY: 2 BENIGN FINDINGS. RECOMMENDATIONS: FOLLOW UP: Routine digital bilateral mammographic screening, one year interval from May 2020. Written communication explaining the IMPRESSION and follow-up, will be mailed to the patient and referring health care provider. According to the [employer], yearly mammograms are recommended starting at age 40 and continuing as long as a woman is in good health. Any breast change noted on a breast self-exam should be reported promptly to the patient's healthcare provider. Breast MRI is recommended for women with an approximately 20-25% or greater lifetime risk of breast cancer, including women with a strong family history of breast or ovarian cancer and women who have been treated for Hodgkin's disease. A negative mammographic report should not delay tissue diagnosis in patients with significant clinical history or physical findings. Extremely dense breast tissue limits the sensitivity of digital mammography. Electronically signed by: Leonel Amanda MD 05/30/2020 4:03 PM RIB PULLER
== END ==
LOC: MAMMO 09:00
PROVIDERS: ATTEND Family Medicine
DX: Z12.31 Encounter for screening mammogram for malignant neoplasm of breast (principal)

== ENCOUNTER → 2020-07-05 | Outpatient (CLI) | payer MEDICARE, OTHER ==
--- NOTE | 2020-07-06 08:19 | RAD ---
EXAM DESCRIPTION: Pelvis (accession [id number]), Hip Bilateral (accession [id number]): CR/DR/XR CLINICAL HISTORY: HIP PAIN COMPARISON: None Available. TECHNIQUE: One view AP Pelvis FINDINGS: No fracture dislocation. Decreased bone density. Left hip- total arthroplasty. Faint radiodense line around the left femoral stem on the abduction view suggesting loosening. Customary position and alignment of the components. Right hip-Marked narrowing of the superior medial joint space and hypertrophic margins. Subchondral sclerosis superior acetabulum. Spurs and hypertrophy of the superior lateral right acetabulum. No acute bony abnormality. Enthesophytes on the initial tuberosities and iliac crests. Vascular calcifications in the pelvis. soft tissue calcifications. IMPRESSION: 1. Arthrosis and narrowing superior medial right hip joint space with hypertrophic changes on the superior and superior lateral acetabulum. No acute bony abnormality. 2. Left total hip arthroplasty. Suggestion of minimal loosening of the femoral stem. 3. Overall bone density is decreased with enthesophytes. Vascular and soft tissue calcifications.. Electronically signed by: Leonel Amanda MD 07/06/2020 8:17 AM [facility]
--- NOTE | 2020-07-06 08:19 | RAD ---
EXAM DESCRIPTION: Pelvis (accession [id number]), Hip Bilateral (accession [id number]): CR/DR/XR CLINICAL HISTORY: HIP PAIN COMPARISON: None Available. TECHNIQUE: One view AP Pelvis FINDINGS: No fracture dislocation. Decreased bone density. Left hip- total arthroplasty. Faint radiodense line around the left femoral stem on the abduction view suggesting loosening. Customary position and alignment of the components. Right hip-Marked narrowing of the superior medial joint space and hypertrophic margins. Subchondral sclerosis superior acetabulum. Spurs and hypertrophy of the superior lateral right acetabulum. No acute bony abnormality. Enthesophytes on the initial tuberosities and iliac crests. Vascular calcifications in the pelvis. soft tissue calcifications. IMPRESSION: 1. Arthrosis and narrowing superior medial right hip joint space with hypertrophic changes on the superior and superior lateral acetabulum. No acute bony abnormality. 2. Left total hip arthroplasty. Suggestion of minimal loosening of the femoral stem. 3. Overall bone density is decreased with enthesophytes. Vascular and soft tissue calcifications.. Electronically signed by: Leonel Amanda MD 07/06/2020 8:17 AM [facility]
== END ==
LOC: RAD 09:19
PROVIDERS: ATTEND Orthopaedic Surgery
DX: M16.11 Unilateral primary osteoarthritis, right hip (principal); M85.88 Other specified disorders of bone density and structure, other site; M77.9 Enthesopathy, unspecified; Z96.642 Presence of left artificial hip joint

== ENCOUNTER 2020-07-06 07:20 | Day surgery (SDC) | payer MEDICARE, OTHER ==
[~2020-07-06 07:20] MED LIST: LIDOCAINE 1% 10 ML VIAL INJ ONE; PROPOFOL 200 MG/20 ML VIAL IV ONE
[2020-07-06] MEDS: BUPIVACAINE 0.25% INJ 30 ML VIAL INJ ONE (08:03)
[2020-07-06] MEDS: LIDOCAINE 1% W/ EPINEPHRINE 20 ML VIAL INJ ONE (08:03)
[2020-07-06] MEDS: methylPREDNISolone ACETATE 80 MG/ML VIAL ONE (08:03)
[2020-07-06 08:53] VITALS: BP 162/57; TEMP 97.6; O2SAT 95
--- NOTE | 2020-07-07 01:53 | RAD ---
EXAM DESCRIPTION: Fluoroscopy Up to 1Hr CLINICAL HISTORY: 89 years Female, RIGHT HIP INJ COMPARISON: None. IMPRESSION: Single intraoperative fluoroscopic images saved for the benefit of the surgeon for right hip injection. Please see procedure report for full details. Fluoroscopy time: Less than 1 minute Fluoroscopic images: 1 Electronically signed by: Jerson Styles MD 07/07/2020 1:51 AM [facility]
--- NOTE | 2020-07-20 08:54 | OP ---
DATE OF PROCEDURE: 07/06/20 PREOPERATIVE DIAGNOSIS: 1. Osteoarthritis of the right hip. POSTOPERATIVE DIAGNOSIS: 1. Osteoarthritis of the right hip. PROCEDURE: 1. Hip injection under anesthesia. SURGEON: Naldo Kevin MD. UNLEAVENED DOUGH MIXER: Leonel oYrk CST, SA-C. ANESTHESIA: Conscious sedation. COMPLICATIONS: None. FINDINGS: Arthritis of the hip. INDICATION: Ms. Phoenix has a history of pain in the hip associated with osteoarthritis. She has failed conservative measures and therefore has requested operative intervention. After discussing the risks, benefits and alternatives to that, the patient has given informed consent for that. PROCEDURE: The patient was brought to the Operating Room and placed in supine position. Conscious sedation was administered and the leg was flexed, abducted and externally rotated. The groin was prepped and fluoroscopic imaging was used to confirm needle placement into the hip joint through a medial portal. Once placement had been confirmed, a combination of lidocaine and Depo-Medrol were injected into the joint. After injection, the needle was withdrawn. Pressure was held on the injection site. A sterile band-aid was placed. The patient was then taken back to the Day Surgery Unit. POSTOPERATIVE PLAN: The patient will be weight-bearing as tolerated. The patient will followup with us in 2 weeks. #[id number] [facility]
== END 2020-07-06 08:56 | disposition home or self-care (01) ==
LOC: AMB 07:20
PROVIDERS: ATTEND Orthopaedic Surgery
DX: M16.11 Unilateral primary osteoarthritis, right hip (principal); I10 Essential (primary) hypertension; Z88.5 Allergy status to narcotic agent; Z88.0 Allergy status to penicillin; Z79.899 Other long term (current) drug therapy